=== PATIENT | male | born 1955 | race Caucasian/White ===

== ENCOUNTER 2016-08-27 06:41 | Day surgery (SDC) | payer OTHER, BC ==
--- NOTE | 2016-08-27 07:37 | PDGENHP ---
History & Physical Outpatient Chief Complaint: subepithelial lesion History of Present Illness: 61 year old male with multiple med problems presents with dysphagia. On prior, EGD had subpeithleial lesions in antrum of the stomach. Pertinent Past, Social, Family History: Reviewed Relevant Physical Exam: GEN: AAO x 3. HEENT: Anicteric. CV- RRR + s1s2. Lungs : CTAB. ABd- soft, nt, + BS. No g/r
[2016-08-27 07:48] LABS: ANION GAP 9 mEq/L (8-16); CALCIUM 9.7 mg/dL (8.5-10.4); CARBON DIOXIDE 25 mEq/l (22-31); CHLORIDE 105 mEq/L (97-110); CREATININE 1.1 mg/dL (0.7-1.3); GLOMERULAR FILTRATION RATE > 60; GLUCOSE 100 mg/dL (70-100); POTASSIUM 4.2 mEq/L (3.5-5.2); SODIUM 139 mEq/L (134-144)
[2016-08-27] MEDS ORDERED: MIDAZOLAM 2 MG/2 ML VIAL ONE ×2 (07:57)
[2016-08-27] MEDS ORDERED: PROPOFOL/EMULSION 500 MG/50 ML BOTTLE IV ONE (07:57)
[2016-08-27] MEDS ORDERED: LABETALOL HCL 5 MG/ML 20 ML MDV IVP PRN (08:15)
[2016-08-27] MEDS ORDERED: HYDROCODONE/APAP 5/325 TAB PO PRN (08:15)
[2016-08-27] MEDS ORDERED: fentaNYL 100 MCG/2 ML INJ IVP PRN (08:15)
[2016-08-27] MEDS ORDERED: ALBUTEROL 3 ML DEYVIAL IH PRN (08:15)
[2016-08-27] MEDS ORDERED: ONDANSETRON 4 MG/2 ML VIAL IVP PRN (08:15)
[2016-08-27] MEDS ORDERED: D5W LR 500 ML IV PRN (08:15)
[2016-08-27] MEDS ORDERED: OXYCODONE/APAP 5/325 TAB PO PRN (08:15)
[2016-08-27] MEDS ORDERED: ACETAMINOPHEN 500 MG TAB PO PRN (08:15)
[2016-08-27] MEDS ORDERED: NALOXONE HCL 0.4 MG/ML INJ IVP PRN (08:15)
[2016-08-27] MEDS ORDERED: LR 500 ML IV PRN (08:15)
--- NOTE | 2016-08-27 08:15 | PDANEPAE ---
ANE Past Medical History - Cardiovascular History Hx Hypertension: Yes Hx Arrhythmias: No Hx Chest Pain: No Hx Coronary Artery / Peripheral Vascular Disease: Yes Hx CHF / Valvular Disease: No Hx Palpitations: No - Pulmonary History Hx COPD: Yes Hx Asthma/Reactive Airway Disease: No Hx Recent Upper Respiratory Infection: Yes Hx Oxygen in Use at Home: Yes O2 in Use at Home (L/minute): 2.5 - 3LPM VIA NASAL CANNULA - Neurologic History Hx Cerebrovascular Accident: No Hx Seizures: No Hx Dementia: No - Endocrine History Hx Diabetes: Yes - Renal History Hx Renal Disorders: No - Neurological & Psychiatric Hx Hx Neurological and Psychiatric Disorders: Yes - Cancer History Hx Cancer: Yes - Congenital Disorder History Hx Congenital Disorders: No - GI History Hx Gastrointestinal Disorders: Yes - Chronic Pain History Chronic Pain: Yes (NECK, BACK) ANE Review of Systems - Exercise capacity METS (RN): 4 METS ANE Patient History - Allergies Allergies/Adverse Reactions: clarithromycin [From Biaxin] Allergy (Severe, Verified 12/08/10 15:58) Rash nystatin [Nystatin] Allergy (Severe, Verified 12/08/10 15:59) Swelling/neck,face,throat prednisone [Prednisone] Allergy (Severe, Verified 12/08/10 15:58) Other-Enter Comments ropinirole HCl [From Requip] Allergy (Severe, Verified 12/08/10 15:59) Other-Enter Comments gabapentin Allergy (Verified 08/24/16 15:51) - Home Medications Home Medications: Androgel 60.75 mg DAILY 08/24/16 [Last Taken 08/26/16] Aspirin 325 mg (*) 1 tab HS 08/24/16 [Last Taken 08/24/16] Baclofen 10 mg (*) 1 tab DAILY 08/24/16 [Last Taken 08/26/16] Benefiber/Nutrisource Fiber (*) 1 tbs DAILY 08/24/16 [Last Taken 08/26/16] Crestor 20mg (*) 1 tab DAILY 08/24/16 [Last Taken 08/26/16] DILTIAZEM HCL 120 mg DAILY 08/24/16 [Last Taken 08/26/16] Herbals/Supplements -Info Only 60 g DAILY 08/24/16 [Last Taken Unknown] Januvia 100 MG (*) 1 tab DAILY 08/24/16 [Last Taken 08/26/16] Levothyroxine 1 tab DAILY 08/24/16 [Last Taken 08/26/16] Omeprazole 20 mg DAILY 08/24/16 [Last Taken 08/26/16] PARoxetine HCL 1 tab DAILY 08/24/16 [Last Taken 08/26/16] Ranitidine HCl 1 tab DAILY 08/24/16 [Last Taken 08/26/16] Seroquel 200 mg (*) 1 tab DAILY 08/24/16 [Last Taken 08/26/16] Vitamin D3 (*) 3,000 i.unit DAILY 08/24/16 [Last Taken 08/25/16] - NPO status NPO Since - Liquids (Date): 08/26/16 NPO Since - Liquids (Time): 11:00 NPO Since - Solids (Date): 08/26/16 NPO Since - Solids (Time): 23:00 - Smoking Hx Smoking Status: Never smoked ANE Labs/Vital Signs - Labs Result Diagrams: 08/27/16 07:20 - Vital Signs Blood Pressure: 140/88 Heart Rate: 58 Respiratory Rate: 16 O2 Sat (%): 94 Height: 193.04 cm Weight: 124.738 kg
[2016-08-27] MEDS ORDERED: ONDANSETRON 4 MG/2 ML VIAL ONE (08:18)
[2016-08-27] MEDS ORDERED: LIDOCAINE 2% 5 ML SDV ONE (08:18)
[2016-08-27] MEDS ORDERED: PROPOFOL 200 MG/20 ML VIAL ONE (08:42)
--- NOTE | 2016-08-27 09:06 | POSTOPPROG ---
Post Op Note Date of Operation: 08/27/16 Surgeon: Cirilo Rios Anesthesia: IV Sedation Pre-op Diagnosis: subepithelial lesion, dsyphagia Post-op Diagnosis: subepithelial lesion, dilation of esophagus Indication: subepithelial lesion Procedure: EGD with biopsy, EUS with FNA Findings: + periportal ln, + gastritis. Inf/Abcess present in the surg proc area at time of surgery?: No EBL: Minimal
--- NOTE | 2016-08-27 09:18 | POSTANESTH ---
Post Anesthetic Evaluation Cardiovascular Status: Normal, Stable Respiratory Status: Similar to Pre-op Cond. Level of Consciousness/Mental Status: Mildly Sleepy, Arousable Pain Control: Adequate, Prn Tx Ordered Nausea/Vomiting Control: Adequate, Prn Tx Ordered Complications Possibly Related to Anesthesia: None Noted
[2016-08-27 10:56] VITALS: PULSE 52; TEMP 97
[2016-08-27 12:28] VITALS: BP 124/76; RESP 16; O2SAT 96
--- NOTE | 2016-08-27 15:44 | GPN ---
[f rep st] PROCEDURE NOTE DATE OF PROCEDURE: 08/27/2016 PROCEDURE: Esophagogastroduodenoscopy with biopsy, endoscopic ultrasound with fine-needle aspiration. INDICATION: The patient is a 61-year-old male who presents for evaluation of dysphagia as well as two subepithelial lesions seen in the antrum of the stomach. CONSENT: Risks, benefits, and alternatives of the procedure were discussed in great detail with the patient. Risks of infection, bleeding, perforation, sedation, and pancreatitis were discussed. All questions answered. Informed consent obtained. MEDICATIONS: Propofol. Please see anesthesiologist records for details. ESTIMATED BLOOD LOSS: Insignificant. ESOPHAGOGASTROSCOPY EXAMINATION: The Olympus endoscope was introduced in the mouth and advanced to the esophagus. The proximal and mid esophagus were normal in appearance. The patient was noted to have an irregular Z-line with 2 tongues of columnar appearing epithelium extending about 1cm from the GE junction. This may represent short-segment Nelson esophagus. Biopsies were taken. The stomach was entered and closely examined, including retroflexed views of the angularis, cardia, and fundus. A large hiatal hernia was noted on retroflexion. The mucosa in the antrum and body of stomach was erythematous in a patchy distribution. Biopsies were taken. In the antrum of stomach, 2 subepithelial lesions were noted which measured approximately 5-6 mm.The mucosa covering these lesion was normal in appearance. Biopsies taken. The duodenal bulb and second portion of the duodenum are normal in appearance. The esophagus was empirically dilated on the way out with a 15-18mm balloon and then a 18-20mm balloon. ENDOSCOPIC ULTRASOUND EXAMINATION: The Olympus linear echoendoscope was introduced into the mouth and advanced to the second portion of the duodenum. The pancreas was carefully examined from the uncinate process to the tail where the spleen was seen. The pancreatic parenchyma had hyperechoic foci throughout the pancreas. Lobulations were also noted in the head of the pancreas. In the body of the pancreas, several dilated side branches were noted. The pancreatic duct wall was hyperechoic. The subepithelium lesions was carefully examine and were hyperechoic consistent with fatty depositsl A periportal node was noted and measured approximately 1 cm. It was round, hypoechoic with well-circumscribed margins. Due to the echo criteria, FNA was performed. Doppler was used to rule out intervening vessels. Two transduodenal passes were made with a [employer] 25-gauge needle into the lesion. Cytology was present and preliminary report shows no evidence of malignancy. One pass was placed directly into flow cytometry on request of cytology. The common bile duct was seen and was without stone, stricture or stenosis. No obvious liver lesions were noted. IMPRESSION: 1. Empiric dilation of esophagus with a 15-18 and 18-20 mm balloon. 2. Irregular Z-line, status post biopsy. 3. Gastritis, status post biopsies. 4. Subepithelial lesion- fatty deposits. 5. Enlarged periportal lymph node - FNA performed. RECOMMEND: 1. Follow up on biopsy and FNA results. 2. Clear liquid diet. 3. Continue previous medications. 4. Repeat EGD in 2 months if any symptoms of dysphagia /[id number]/MODL MTDD
[2016-08-29 13:09] LABS: FINAL DIAGNOSIS See Comments; MICROSCOPIC DESCRIPTION See Comments
== END 2016-08-27 11:58 | disposition home or self-care (01) ==
LOC: FSGY 06:41
PROVIDERS: ATTEND Internal Medicine Gastroenterology
PROC: 0D758ZZ Dilation of Esophagus, Via Natural or Artificial Opening Endoscopic (ICD-10-PCS; principal; 2016-08-27 08:00)
PROC: 07B74ZX Excision of Thorax Lymphatic, Percutaneous Endoscopic Approach, Diagnostic (ICD-10-PCS; principal; 2016-08-27 08:00)
PROC: 0DB58ZX Excision of Esophagus, Via Natural or Artificial Opening Endoscopic, Diagnostic (ICD-10-PCS; principal; 2016-08-27 08:00)
PROC: 0DB68ZX Excision of Stomach, Via Natural or Artificial Opening Endoscopic, Diagnostic (ICD-10-PCS; principal; 2016-08-27 08:00)
DX: K31.9 Disease of stomach and duodenum, unspecified (principal); K29.70 Gastritis, unspecified, without bleeding; K44.9 Diaphragmatic hernia without obstruction or gangrene; R59.0 Localized enlarged lymph nodes; R13.10 Dysphagia, unspecified
CPT/HCPCS: 43238; 43239; 43249; C1726; 88184-90; 88185-91; J2250; J2405; J2704

== ENCOUNTER → 2017-08-07 | Outpatient (CLI) | payer OTHER, BC | LOC: FIMAGING 09:40 | PROVIDERS: ATTEND Internal Medicine Gastroenterology | DX: R11.10 Vomiting, unspecified (principal) | CPT/HCPCS: 78264; A9541 ==